=== PATIENT | male | born 1990 | race African-American/Black ===

== ENCOUNTER 2019-02-25 22:58 | Emergency (ER) | payer SELFPAY ==
[2019-02-25] MEDS ORDERED: Ketorolac Tromethamine 60 MG/2 ML VIAL ONE (23:27)
[2019-02-25] MEDS ORDERED: Acetaminophen 500 MG TAB ONE (23:27)
--- NOTE | 2019-02-25 23:48 | RAD ---
2 views right forearm. HISTORY: Trauma to right forearm. With pain. AP and lateral views right forearm is obtained. No evidence of acute forearm fracture seen. Again fifth metacarpal fracture seen. IMPRESSION: The right radius and ulna are unremarkable.
== END 2019-02-26 00:01 ==
LOC: MADERS 22:58
DX: S92.351A Displaced fracture of fifth metatarsal bone, right foot, initial encounter for closed fracture (principal); I25.2 Old myocardial infarction; I10 Essential (primary) hypertension; X58.XXXA Exposure to other specified factors, initial encounter
CPT/HCPCS: 26600; 96372; J1885